=== PATIENT | male | born 1955 | race Asian ===

== ENCOUNTER 2022-09-20 13:30 | Inpatient (IN) | payer SELFPAY ==
[2022-09-20] MEDS ORDERED: Ipratropium Bromide 2.5 ml Neb ONE (14:16)
[2022-09-20] MEDS ORDERED: Albuterol Sulfate 2.5 mg/3 ml Neb ONE (14:16)
[2022-09-20 14:30] LABS: #Monocytes 0.3 10x3/uL (0.0-1.1); #Neutrophils 7.6 10x3/uL (1.5-8.4); %Basophils 0.1 % (0.0-2.0); %Monocytes 3.3 % (0.0-10.0); %Neutrophils 90.2 % (40.0-75.0); Hemoglobin 7.8 g/dL (13.5-17.5); Mean Corpuscular HGB CONC 28.2 g/dL (32.0-36.0); Mean Corpuscular Hemoglobin 19.9 pg (27.0-33.0); Mean Corpuscular Volume 70.8 fl (81.2-95.1); Mean Platelet Volume 10.4 fl (7.4-10.4); Platelet Count 214 10x3/uL (150-450); RBC Distribution Width 18.5 % (11.5-14.5); Red Blood Cell (RBC) Count 3.91 10x6/uL (4.32-5.72); White Blood Cell (WBC) Count 8.4 10x3/uL (3.5-10.5)
[2022-09-20] MEDS ORDERED: methylPREDNISolone Sod Succ/PF 125 MG/2 ML VIAL ONE (14:32)
[2022-09-20 14:49] LABS: SARS-CoV-2 NAA Rapid Test Not Detected (NotDetected)
[2022-09-20 14:52] LABS: ALT (SGPT) 23 U/L (8-55); AST (SGOT) 34 U/L (5-34); Albumin 3.9 g/dL (3.4-4.8); Alkaline Phosphatase 60 U/L (40-110); Anion Gap 14 mmol/L (10-20); BUN (Urea Nitrogen) 28 mg/dL (8.4-25.7); Bilirubin, Total 0.2 mg/dL (0.2-1.2); Calc. Creatinine Clearance 0 mL/min (70-130); Calcium 8.2 mg/dL (7.8-10.44); Carbon Dioxide 22 mmol/L (23-31); Chloride 101 mmol/L (98-107); Estimated GFR 26; Globulin 3.1 g/dL (2.4-3.5); Glucose 84 mg/dL (80-115); Potassium 4.6 mmol/L (3.5-5.1); Sodium 132 mmol/L (136-145)
[2022-09-20 15:03] LABS: Anisocytosis SLIGHT = 6-15 cells (100X) (0-5/hpf); Hypochromia SLIGHT = 6-15 cells (100X) (0-5/hpf); Microcytosis SLIGHT = 6-15 cells (100X) (0-5/hpf); Ovalocytes SLIGHT = 2-5 cells (100X) (0-1/hpf); Platelet Morphology Comment Appears Adequate; Tear Drops SLIGHT = 2-5 cells (100X) (0-1/hpf)
[2022-09-20] MEDS ORDERED: Oseltamivir 6 MG/ML ORAL SUSP PO SCH (16:00)
[2022-09-20 16:24] LABS: Actual Bicarbonate (HCO3v) 24 mEq/L (22-28); Base Excess -0.3 mEq/L (-2.0 to +3.0); Calcium, Ionized (venous) 0.93 mmol/L (1.16-1.32); Chloride (VBG) 103 mmol/L (98-106); Hemoglobin (Hb) 8.5 g/dL (12.6-17.4); Potassium (VBG) 4.71 mmol/L (3.70-5.30); Puncture Site Other Site; RapidComm Collect By CBN; Sodium 129.1 mmol/L (133-146); pH (venous) 7.43 (7.32-7.43)
[2022-09-20] MEDS ORDERED: Benzonatate 100 MG CAP PO PRN (17:00)
[2022-09-20] MEDS ORDERED: Dextrose 5% in Water 1,000 ML IV PRN (17:02)
[2022-09-20] MEDS ORDERED: Dextrose 50% Abboject 50 ML SYRINGE SLOW IVP PRN (17:02)
[2022-09-20] MEDS ORDERED: Ondansetron ODT 4 MG TAB PO PRN (17:03)
[2022-09-20] MEDS ORDERED: Senokot S 8.6-50 MG TAB PO PRN (17:03)
[2022-09-20] MEDS ORDERED: Acetaminophen 325 MG TAB PO PRN (17:03)
[2022-09-20] MEDS ORDERED: Ondansetron PF 4 MG/2 ML Vial IVP PRN (17:03)
[2022-09-20] MEDS ORDERED: Pregabalin 50 MG CAP ONE (21:31)
[2022-09-20] MEDS ORDERED: Heparin 5,000 UNITS/ML VIAL ONE (21:31)
[2022-09-20] MEDS ORDERED: methylPREDNISolone Sod Succ 40 MG VIAL ONE (21:32)
[2022-09-20] MEDS: Heparin 5,000 UNITS/ML VIAL SC SCH (21:52)
[2022-09-20] MEDS: Doxycycline 100 MG CAP PO SCH (21:52)
[2022-09-20] MEDS: Pregabalin 50 MG CAP PO SCH (21:53)
[2022-09-20] MEDS: Rosuvastatin 10 MG TAB PO SCH (21:53)
[2022-09-20] MEDS: methylPREDNISolone Sod Succ 40 MG VIAL IVP SCH (21:53)
[2022-09-21 00:25] VITALS: BMI 33.5
[2022-09-21 05:46] LABS: Anion Gap 14 mmol/L (10-20); BUN (Urea Nitrogen) 35 mg/dL (8.4-25.7); Calc. Creatinine Clearance 42 mL/min (70-130); Calcium 8.4 mg/dL (7.8-10.44); Carbon Dioxide 23 mmol/L (23-31); Chloride 101 mmol/L (98-107); Estimated GFR 25; Glucose 259 mg/dL (80-115); Potassium 5.2 mmol/L (3.5-5.1); Sodium 133 mmol/L (136-145)
[2022-09-21 06:14] LABS: Hemoglobin 8.1 g/dL (13.5-17.5); Mean Corpuscular HGB CONC 28.1 g/dL (32.0-36.0); Mean Corpuscular Hemoglobin 20.3 pg (27.0-33.0); Mean Corpuscular Volume 72.2 fl (81.2-95.1); Mean Platelet Volume 11.2 fl (7.4-10.4); Platelet Count 207 10x3/uL (150-450); RBC Distribution Width 18.5 % (11.5-14.5); Red Blood Cell (RBC) Count 3.99 10x6/uL (4.32-5.72); White Blood Cell (WBC) Count 2.8 10x3/uL (3.5-10.5)
[2022-09-21 06:20] LABS: MDiff Complete? YES
[2022-09-21] MEDS: HumaLOG 300 UNITS/3 ML VIAL SC PRN ×5 (06:54→21:05)
[2022-09-21] MEDS: Arformoterol 15 MCG/2 ML NEB NEB SCH ×2 (07:23→19:58)
[2022-09-21] MEDS: Mometasone/Formoterol 60 PUFF AER INH SCH ×2 (07:30→20:40)
[2022-09-21 07:51] LABS: Band 12 % (5-11); Lymphocytes 7 % (21-51); Monocytes 2 % (0-10); Neutrophil 79 % (42-75)
[2022-09-21 07:52] LABS: Anisocytosis SLIGHT = 6-15 cells (100X) (0-5/hpf); Hypochromia SLIGHT = 6-15 cells (100X) (0-5/hpf); Microcytosis SLIGHT = 6-15 cells (100X) (0-5/hpf); Ovalocytes SLIGHT = 2-5 cells (100X) (0-1/hpf)
[2022-09-21 07:53] LABS: Platelet Morphology Comment Appears Adequate
[2022-09-21] MEDS: methylPREDNISolone Sod Succ 40 MG VIAL IVP SCH ×2 (09:37→21:04)
[2022-09-21] MEDS: Pregabalin 50 MG CAP PO SCH ×3 (09:37→23:54)
[2022-09-21] MEDS: Doxycycline 100 MG CAP PO SCH ×2 (09:37→23:53)
[2022-09-21] MEDS: Heparin 5,000 UNITS/ML VIAL SC SCH ×2 (09:37→23:53)
[2022-09-21] MEDS: Aspirin 81 mg Enteric Coated Tablet PO SCH (09:37)
[2022-09-21] MEDS: Oseltamivir 6 MG/ML ORAL SUSP PO SCH ×2 (09:38→23:53)
[2022-09-21] MEDS: Leflunomide 10 mg Tablet PO SCH (11:33)
[2022-09-21] MEDS ORDERED: EPOETIN ALFA-EPBX (NON-ESRD) 10,000 UNIT/ML VIAL SC SCH (12:00)
[2022-09-21] MEDS ORDERED: INSULIN LISPRO 100 UNIT/ML SQ PRN (12:07)
[2022-09-21] MEDS ORDERED: [UNRECOGNIZED DRUG - OTHER] SQ PRN (12:07)
[2022-09-21 12:27] LABS: Bilirubin Neg (Negative); Blood, Urine 10 (Negative); Clarity Clear (Clear); Glucose, Urine (Dipstick) 100 mg/dL (Negative); Ketone, Urine Negative (Negative); Leukocyte Negative (Negative); Nitrite Negative (Negative); Protein, Urine (Dipstick) 15 mg/dl (Neg-Trace); Specific Gravity, Urine 1.015 (1.005-1.030); Urobilinogen Normal mg/dL (Less than 2)
[2022-09-21 12:34] LABS: Bacteria/HPF None Seen HPF (None Seen); RBC/HPF 0-3 HPF (0-3); Squamous Epithelial 0-3 HPF (0-3); WBC/HPF 0-3 HPF (0-3)
[2022-09-21 12:42] LABS: Creatinine, Urine 73.57 mg/dL (63-166)
[2022-09-21] MEDS ORDERED: Lantus 1000 UNITS/10 ML VIAL SC SCH (13:00)
[2022-09-21] MEDS: Lantus 1000 UNITS/10 ML VIAL SC SCH (21:03)
[2022-09-21] MEDS: Rosuvastatin 10 MG TAB PO SCH (23:54)
[2022-09-21] MEDS: Tamsulosin HCl 0.4 MG CAP PO SCH (23:54)
[2022-09-22 04:58] LABS: #Monocytes 0.3 10x3/uL (0.0-1.1); #Neutrophils 4.5 10x3/uL (1.5-8.4); %Basophils 0.2 % (0.0-2.0); %Lymphocytes 4.9 % (18.0-47.0); %Monocytes 6.2 % (0.0-10.0); %Neutrophils 87.7 % (40.0-75.0); Hemoglobin 7.9 g/dL (13.5-17.5); Mean Corpuscular HGB CONC 28.2 g/dL (32.0-36.0); Mean Corpuscular Hemoglobin 20.1 pg (27.0-33.0); Mean Corpuscular Volume 71.2 fl (81.2-95.1); Mean Platelet Volume 10.4 fl (7.4-10.4); Platelet Count 210 10x3/uL (150-450); RBC Distribution Width 18.6 % (11.5-14.5); Red Blood Cell (RBC) Count 3.93 10x6/uL (4.32-5.72); White Blood Cell (WBC) Count 5.1 10x3/uL (3.5-10.5)
[2022-09-22 05:07] LABS: Anion Gap 15 mmol/L (10-20); BUN (Urea Nitrogen) 39 mg/dL (8.4-25.7); Calc. Creatinine Clearance 48 mL/min (70-130); Calcium 8.4 mg/dL (7.8-10.44); Carbon Dioxide 25 mmol/L (23-31); Chloride 100 mmol/L (98-107); Estimated GFR 30; Glucose 360 mg/dL (80-115); Iron 13 ug/dL (65-175); Iron Binding Capacity, Total 376 mcg/dL (261-462); Potassium 4.7 mmol/L (3.5-5.1); Sodium 135 mmol/L (136-145)
[2022-09-22 05:12] LABS: Ferritin 26.05 ng/mL (22-322)
[2022-09-22] MEDS: HumaLOG 300 UNITS/3 ML VIAL SC PRN ×4 (05:54→22:57)
[2022-09-22 06:05] LABS: Microcytosis SLIGHT = 6-15 cells (100X) (0-5/hpf); Poikilocytosis SLIGHT = 6-15 cells (100X) (0-5/hpf)
[2022-09-22 06:06] LABS: Basophilic Stippling SLIGHT = 1-2 cells (100X) (None Seen); Elliptocytes SLIGHT = 2-5 cells (100X) (0-1/hpf); Hypochromia SLIGHT = 6-15 cells (100X) (0-5/hpf); Tear Drops SLIGHT = 2-5 cells (100X) (0-1/hpf)
[2022-09-22] MEDS: Arformoterol 15 MCG/2 ML NEB NEB SCH ×2 (07:07→20:11)
[2022-09-22] MEDS: Mometasone/Formoterol 60 PUFF AER INH SCH ×2 (07:15→20:36)
[2022-09-22] MEDS ORDERED: Iron Sucrose Complex 100 MG in Sodium Chloride 0.9% 100 ML IVPB SCH (09:30)
[2022-09-22] MEDS ORDERED: Iron, Sodium Ferric Gluconate 125 MG in Sodium Chloride 0.9% 100 ML IVPB SCH (09:45)
[2022-09-22] MEDS: Oseltamivir 6 MG/ML ORAL SUSP PO SCH ×2 (09:46→22:55)
[2022-09-22] MEDS: Alogliptin 25 MG TAB PO SCH (09:46)
[2022-09-22] MEDS: methylPREDNISolone Sod Succ 40 MG VIAL IVP SCH ×2 (09:46→22:58)
[2022-09-22] MEDS: Doxycycline 100 MG CAP PO SCH ×2 (09:46→22:57)
[2022-09-22] MEDS: Aspirin 81 mg Enteric Coated Tablet PO SCH (09:46)
[2022-09-22] MEDS: Heparin 5,000 UNITS/ML VIAL SC SCH ×2 (09:46→22:58)
[2022-09-22] MEDS: Pregabalin 50 MG CAP PO SCH ×3 (09:46→22:58)
[2022-09-22] MEDS: Leflunomide 10 mg Tablet PO SCH (09:48)
[2022-09-22 14:10] LABS: Vitamin B12 Greater than 2000 pg/mL (211-911)
[2022-09-22] MEDS ORDERED: ALPRAZolam 0.5 MG TAB PO SCH (22:30)
[2022-09-22] MEDS: Lantus 1000 UNITS/10 ML VIAL SC SCH (22:56)
[2022-09-22] MEDS: Tamsulosin HCl 0.4 MG CAP PO SCH (22:59)
[2022-09-22] MEDS: Rosuvastatin 10 MG TAB PO SCH (22:59)
[2022-09-23] MEDS ORDERED: hydrOXYzine 25 MG TAB PO SCH (00:30)
[2022-09-23] MEDS ORDERED: Melatonin 3 MG TAB PO SCH (00:30)
[2022-09-23] MEDS ORDERED: Phenazopyridine HCl 95 MG TAB PO SCH (02:15)
[2022-09-23 05:27] LABS: Anion Gap 13 mmol/L (10-20); BUN (Urea Nitrogen) 40 mg/dL (8.4-25.7); Calc. Creatinine Clearance 54 mL/min (70-130); Calcium 8.5 mg/dL (7.8-10.44); Carbon Dioxide 26 mmol/L (23-31); Chloride 103 mmol/L (98-107); Estimated GFR 34; Glucose 326 mg/dL (80-115); Potassium 4.7 mmol/L (3.5-5.1); Sodium 137 mmol/L (136-145)
[2022-09-23] MEDS: Mometasone/Formoterol 60 PUFF AER INH SCH ×2 (07:50→20:23)
[2022-09-23] MEDS: Arformoterol 15 MCG/2 ML NEB NEB SCH ×2 (07:50→20:13)
[2022-09-23] MEDS: methylPREDNISolone Sod Succ 40 MG VIAL IVP SCH ×3 (09:40→22:45)
[2022-09-23] MEDS: Doxycycline 100 MG CAP PO SCH ×2 (09:40→22:00)
[2022-09-23] MEDS: Pregabalin 50 MG CAP PO SCH ×3 (09:40→22:43)
[2022-09-23] MEDS: Alogliptin 25 MG TAB PO SCH (09:40)
[2022-09-23] MEDS: Heparin 5,000 UNITS/ML VIAL SC SCH ×2 (09:40→22:47)
[2022-09-23] MEDS: Aspirin 81 mg Enteric Coated Tablet PO SCH (09:40)
[2022-09-23] MEDS: Ferrous Gluconate 324 MG TAB PO SCH (09:40)
[2022-09-23] MEDS: Oseltamivir 6 MG/ML ORAL SUSP PO SCH ×2 (09:43→22:00)
[2022-09-23] MEDS: Leflunomide 10 mg Tablet PO SCH (09:43)
[2022-09-23] MEDS: HumaLOG 300 UNITS/3 ML VIAL SC PRN ×3 (11:45→22:43)
[2022-09-23] MEDS ORDERED: cloNIDine 0.1 MG TAB PO SCH (20:45)
[2022-09-23] MEDS: Lantus 1000 UNITS/10 ML VIAL SC SCH (22:41)
[2022-09-23] MEDS: Rosuvastatin 10 MG TAB PO SCH (22:42)
[2022-09-23] MEDS: Tamsulosin HCl 0.4 MG CAP PO SCH (22:43)
[2022-09-24] MEDS ORDERED: Phenazopyridine HCl 95 MG TAB PO SCH ×2 (02:30)
[2022-09-24 05:18] LABS: Anion Gap 13 mmol/L (10-20); BUN (Urea Nitrogen) 43 mg/dL (8.4-25.7); Calc. Creatinine Clearance 58 mL/min (70-130); Calcium 8.9 mg/dL (7.8-10.44); Carbon Dioxide 27 mmol/L (23-31); Chloride 104 mmol/L (98-107); Estimated GFR 37; Glucose 212 mg/dL (80-115); Potassium 4.9 mmol/L (3.5-5.1); Sodium 139 mmol/L (136-145)
[2022-09-24] MEDS: HumaLOG 300 UNITS/3 ML VIAL SC PRN (06:41)
[2022-09-24] MEDS: Arformoterol 15 MCG/2 ML NEB NEB SCH (07:10)
[2022-09-24] MEDS: Mometasone/Formoterol 60 PUFF AER INH SCH (07:17)
[2022-09-24] MEDS: methylPREDNISolone Sod Succ 40 MG VIAL IVP SCH (10:33)
[2022-09-24] MEDS: Pregabalin 50 MG CAP PO SCH (10:34)
[2022-09-24] MEDS: Doxycycline 100 MG CAP PO SCH (10:34)
[2022-09-24] MEDS: Alogliptin 25 MG TAB PO SCH (10:34)
[2022-09-24] MEDS: Aspirin 81 mg Enteric Coated Tablet PO SCH (10:34)
[2022-09-24] MEDS: Ferrous Gluconate 324 MG TAB PO SCH (10:35)
[2022-09-24] MEDS: Leflunomide 10 mg Tablet PO SCH (10:36)
[2022-09-24] MEDS: Heparin 5,000 UNITS/ML VIAL SC SCH (10:55)
[2022-09-24] MEDS: Oseltamivir 6 MG/ML ORAL SUSP PO SCH (10:55)
[2022-09-24 14:34] VITALS: BP 162/83; TEMP 97.8
== END 2022-09-24 12:20 | disposition home or self-care (01) | DRG 193 ==
LOC: CSHERS 13:30 → CSHERHOLD 21:17 → CSHTELE 09-21 01:31
PROVIDERS: ADMIT Family Medicine; ATTEND Family Medicine
PROC: 0T9B70Z Drainage of Bladder with Drainage Device, Via Natural or Artificial Opening (ICD-10-PCS; principal; 2022-09-22)
DX: J10.1 Influenza due to other identified influenza virus with other respiratory manifestations (principal); J96.21 Acute and chronic respiratory failure with hypoxia; J45.901 Unspecified asthma with (acute) exacerbation; N17.9 Acute kidney failure, unspecified; E87.1 Hypo-osmolality and hyponatremia; N18.30 Chronic kidney disease, stage 3 unspecified; M06.9 Rheumatoid arthritis, unspecified; E11.22 Type 2 diabetes mellitus with diabetic chronic kidney disease; I12.9 Hypertensive chronic kidney disease with stage 1 through stage 4 chronic kidney disease, or unspecified chronic kidney disease; E87.5 Hyperkalemia; D63.1 Anemia in chronic kidney disease; R33.9 Retention of urine, unspecified; Z79.82 Long term (current) use of aspirin; Z86.73 Personal history of transient ischemic attack (TIA), and cerebral infarction without residual deficits; Z79.4 Long term (current) use of insulin; Z99.81 Dependence on supplemental oxygen; Z79.899 Other long term (current) drug therapy; Z87.891 Personal history of nicotine dependence; Z91.018 Allergy to other foods; Z20.822 Contact with and (suspected) exposure to COVID-19
CPT/HCPCS: 36415; 36416; 71045; 76770; 80048; 80053; 81001; 82274; 82306; 82570; 82607; 82728; 82805; 83036; 83540; 83550; 83605; 83970; 84156; 85025; 85046; 87040; 94640; 94664; 94760; 96374; J1644; J1815; J2916; J2920; J2930; J3490; J7611; J7620; Q5106

== ENCOUNTER 2023-11-18 13:15 | Outpatient (CLI) | payer OTHER | END 2023-11-18 13:16 | disposition home or self-care (01) | LOC: CSHCT 13:15 | PROVIDERS: ATTEND Internal Medicine | DX: R59.0 Localized enlarged lymph nodes (principal); J92.9 Pleural plaque without asbestos; J38.7 Other diseases of larynx; J39.1 Other abscess of pharynx | CPT/HCPCS: 70491; 82565 ==